=== PATIENT | female | born 1950 | race Caucasian/White ===

== ENCOUNTER 2019-12-25 16:39 | Inpatient (IN) ==
[2019-12-25] MEDS ORDERED: ZOSYN 3.375 GM in NS 50 ML IV ONE (17:29)
[2019-12-25] MEDS ORDERED: DUONEB (A & A) INH ONE (17:29)
[2019-12-25] MEDS ORDERED: TAMIFLU PO ONE (17:29)
[2019-12-25] MEDS ORDERED: NS 1,000 ML IV ONE ×3 (17:29→18:40)
[2019-12-25] MEDS ORDERED: TORADOL IV ONE (17:29)
[2019-12-25] MEDS ORDERED: SOLU-MEDROL IV ONE (17:29)
[2019-12-25 18:12] LABS: BASO# 0.02 X1000 (0.0-0.2); BASO% 0.2 % (0.0-0.8); HEMATOCRIT 41.3 % (37.0-47.0); HEMOGLOBIN 13.7 g/dL (12.0-16.0); IMM GRAN# 0.03 X1000 (0.0-0.04); IMM GRAN% 0.3 % (0.0-0.5); LYMPH# 1.85 X1000 (1.2-3.4); MCH 31.8 PG (27-31); MCHC 33.2 g/dL (33-37); MCV 95.8 FL (81-99); MONO# 1.04 X1000 (0.11-0.59); MPV 9.9 FL (7.4-10.4); NEUT# 8.61 X1000 (1.4-6.5); NEUT% 74.5 % (42.2-75.2); PLT 262 X1000 (130-400); RBC 4.31 XMIL (4.2-5.4); RDW 13.2 % (11.5-14.5); WBC 11.55 X1000 (4.8-10.8)
[2019-12-25 18:17] LABS: AGAP 16; ALBUMIN 4.2 g/dL (3.5-5.0); ALKALINE PHOSPHATASE 93 U/L (32-104); BUN 14 mg/dL (8-22); CALCIUM 9.1 mg/dL (8.8-10.2); CHLORIDE 95 mmol/L (98-107); COSMO 270; CREATININE 0.7 mg/dL (0.5-0.9); ESTIMATED GFR > 60; GLUCOSE 123 mg/dL (70-104); GOT 21 U/L (10-30); GPT 11 U/L (10-36); POTASSIUM 4.2 mmol/L (3.5-5.1); SODIUM 134 mmol/L (136-145); TCO2 24 mmol/L (25-35); TOTAL PROTEIN 6.9 g/dL (6.3-8.3)
--- NOTE | 2019-12-25 18:23 | Diag Imaging Result Doc PS360 ---
EXAM: CHEST-2 VIEWS 12/25/2019 HISTORY: short of breath TECHNIQUE: PA and lateral chest COMMENT: There is increased opacity present in the inferior right upper lobe and the right middle lobe compared to 04/14/2019. There is COPD. The heart size and primary vascularity are within normal limits. IMPRESSION: COPD and patchy bronchopneumonia in the right upper and middle lobes. Electronically signed by Keanu Yeung 12/25/2019 6:20 PM
[2019-12-25 18:27] LABS: INFLUENZA A POSITIVE (NEGATIVE); INFLUENZA B NEGATIVE (NEGATIVE)
--- NOTE | 2019-12-25 18:32 | EKG Report ---
Test Performed on : 12/25/2019 6:29:40 PM Test Reason : SOB Blood Pressure : / mmHG Vent. Rate : 084 BPM Atrial Rate : 084 BPM P-R Int : 188 ms QRS Dur : 102 ms QT Int : 390 ms P-R-T Axes : 078 -03 078 degrees QTc Int : 460 ms Normal sinus rhythm. Anteroseptal infarct (cited on or before 03-MAR-2015) Abnormal ECG When compared with ECG of 12-FEB-2018 22:32, No significant change was found Unconfirmed Result
[2019-12-25] MEDS ORDERED: ZOFRAN ODT PO PRN (18:36)
[2019-12-25] MEDS ORDERED: TYLENOL PO PRN (18:36)
--- NOTE | 2019-12-25 18:42 | PROVIDER DOCUMENTATION ---
This chart was entered by Sulema Carranza Scribe, acting as scribe for Devin Min MD. HPI-General Adult - General Chief Complaint: Flu Symptoms Stated Complaint: BLOOD PRESSURE Time Seen by Provider: 12/25/19 17:26 Source: patient, family Allergies/Adverse Reactions: Patient Allergies Allergy/AdvReac Type Severity Reaction Status Date / Time No Known Allergies Allergy Verified 02/12/18 21:47 Home Medications: Home Medication List Medication Instructions Recorded Confirmed Last Taken Type Atorvastatin Calcium [Lipitor] 10 mg PO DAILY 09/10/14 04/27/15 04/26/15 History Budesonide/Formoterol Fumarate 2 puff INH BID PRN 09/10/14 04/27/15 04/26/15 History [Symbicort 160-4.5 Mcg Inhaler] Metoprolol Succinate E.r. [Toprol 25 mg PO DAILY 09/10/14 04/27/15 04/26/15 History Xl] Nitroglycerin Sl [Nitroglycerin] 0.4 mg SL PRN PRN 04/27/15 04/27/15 04/25/15 07:00 History Amoxicillin [Amoxil] 875 mg PO BID #28 tablet 04/29/15 Unknown Rx Clarithromycin [Biaxin] 500 mg PO BID #28 tablet 04/29/15 Unknown Rx Nicotine Patch [Nicoderm Patch] 7 mg TD DAILY #10 patch.td24 04/29/15 Unknown Rx Nicotine Patch [Nicoderm Patch] 14 mg TD DAILY #10 patch.td24 04/29/15 Unknown Rx Pantoprazole [Protonix] 40 mg PO BID #60 tablet 04/29/15 Unknown Rx Sucralfate [Carafate Liquid] 1 gm PO AC + HS #120 udc 04/29/15 Unknown Rx Amoxicillin/Pot Clavulanate 875 mg PO Q12HR #14 tab 02/12/18 Unknown Rx [Augmentin] - History of Present Illness -Gen Adult Nature of Presenting Problems: 68 yowf presents w/son to er w/cc pt sent from PCP w/+ flu dx and hypotension. htn has resolved in er. pt sts 3 days of sore throat, ear pain, keller, body aches, chills and cough. pt son sts she was sick w/similar symptoms before and was admitted. son also reports pt is noncompliant to taking rx. pt has hx of PNU. smoker. Location of Pain/Injury: reports: generalized Pain Radiation: reports: no radiation Quality of Pain: reports: aching Severity: reports: mild Onset/Duration: reports: 3 days ago Timing: reports: still present Context/Activities at Onset: reports: none Modifying Factors: improves with: nothing Associated Symptoms: reports: cough, EENT symptoms, fever/chills, headaches, muscle aches Recently seen or treated by another doctor?: Yes (tx at pcp water vessel captain, dx w/flu ) Review of Systems - Adult - REVIEW OF SYSTEMS - ADULT Constitutional: reports: see HPI, chills, other (+ flu dx). denies: fever, fatique, night sweats Eyes: reports: no symptoms reported Ears, Nose, Mouth & Throat: reports: see HPI, ear pain, throat pain. denies: ear discharge, nose pain, hoarseness Cardiovascular: reports: see HPI, other (HTN, has resolved in er) Respiratory: reports: see HPI, cough. denies: hemoptysis, pleurisy, shortness of breath Gastrointestinal: reports: no symptoms reported Genitourinary: reports: no symptoms reported Musculoskeletal: reports: see HPI, muscle aches (generalized). denies: joint pain, muscle weakness, neck pain Integumentary: reports: no symptoms reported Neurological: reports: see HPI, headache/migraines. denies: loss of balance, numbness, tremors Psychiatric: reports: no symptoms reported Endocrine: reports: no symptoms reported Hematologic/Lymphatic: reports: no symptoms reported Allergic/Immunologic: reports: no symptoms reported All Other Systems: Reviewed and Negative Past History - Adult - PAST MEDICAL HISTORY-ADULT Review of Records: reports: Nursing Assessment Review, Medications Reviewed, Social history reviewed & non-contributory. Major Childhood Illnesses: reports: denies history Cardiovascular: reports: CHF, HTN, hyperlipidemia, [place] Respiratory: reports: asthma, COPD Gastrointestinal: reports: denies history Obstetrical/Gynecological: reports: denies history Genitourinary: reports: denies history Musculoskeletal: reports: denies history Neurological: reports: denies history Endocrine/Immune: reports: denies history Other Conditions: reports: denies history - PRIOR SURGERIES/PROCEDURES Surgical/Procedure History: reports: cardiac stent, BTL - IMMUNIZATION STATUS Childhood Immunizations: See Nurse Assessment Flu Vaccine: See Nurse Assessment - FAMILY HISTORY Family History: reviewed, not pertinent - SOCIAL HISTORY Smoking: cigarettes, greater than 1 pack/day Provider spent 3-5 mins advising pt. on dangers of tobacco.: Discussed manners to quit use, and f/u contacts for add'l counseling. Substance Use: none/never Physical Exam-General - PHYSICAL EXAM-ADULT Initial Vital Signs Reviewed: Yes - CONSTITUTIONAL General Appearance: alert, mild distress (uncomfortable appearaing), thin. negative: lethargic, slow to respond, combative - EYES Eyes: PERRL/EOMI - HEAD, EARS, NOSE, MOUTH & THROAT HENMT: normocephalic/atraumatic, moist mucous membranes - NECK Neck: non-tender, full range of motion, supple, normal inspection - RESPIRATORY Respiratory: chest non-tender, normal breath sounds, no pleuratic chest pain, no respiratory distress, no accessory muscle use, wheezing (expiratory), other (tachypnic). negative: lungs clear, decreased breath sounds, accessory muscle use, crackles - CARDIOVASCULAR Cardiovascular: normal peripheral pulses, regular rate, rhythm - GASTROINTESTINAL (ABDOMEN) Abdominal Exam: normal bowel sounds, non tender, soft - MUSCULOSKELETAL Back Exam: normal inspection Extremity: normal range of motion, non-tender, normal inspection - SKIN Integumentary: normal color, normal turgor, warm/dry - NEUROLOGIC Neurologic: grossly normal, no motor/sensory deficits - PSYCHIATRIC Psych/Mental Status: normal mood/affect, normal thought content, normal thought process, oriented x 3 Progress - PLAN OF CARE/RESULTS Progress/Plan/Lab Results: Vital Signs - 8 hr 12/25/19 16:54 Temperature 99.0 F Pulse Rate 89 Respiratory Rate 17 Blood Pressure 125/74 O2 Sat by Pulse Oximetry 92 L Orders Category Date Time Status Nursing- Obtain EKG once Care 12/25/19 17:11 Active Saline Loc NOW Care 12/25/19 17:12 Active CHEST-2 VIEWS [RAD] Stat Exams 12/25/19 17:10 Ordered BLOOD CULTURE [BLDCUL] Stat Lab 12/25/19 17:10 Uncollected CBC WITH ELECTRONIC DIFF [HEME] Stat Lab 12/25/19 17:10 Uncollected COMPREHENSIVE METABOLIC PANEL [CHEM] Stat Lab 12/25/19 17:[address] Stat Lab 12/25/19 17:[address] S[address]EN [address] Stat Lab 12/25/19 17:14 Uncollected LACTATE, PLASMA [CHEM] Stat Lab 12/25/19 17:10 Uncollected PRO B-NATRIURETIC PEPTIDE Stat Lab 12/25/19 17:12 Uncollected TROPONIN T HIGH SENSITIVITY Stat Lab 12/25/19 17:12 Uncollected URINALYSIS W/POSS RFLX CULT [URINALYSIS] Stat Lab 12/25/19 17:11 Uncollected EKG [EKG] Stat Ther 12/25/19 17:11 Ordered Result Diagrams: 12/25/19 17:40 12/25/19 17:40 - EKG 1 Time of EKG reading by physician:: 18:29 EKG Read and Signed by:: Devin Min EKG Interpretation (*Must complete 3 of following elements*): Abnormal Rate: 84 Rhythm: NSR [place]: normal QRS: poor R wave progression NH Interval: normal ST Wave: normal Comments: AOWMI - XRAY 1 XRAY Study: Chest Impression: Abnormal, See EMR Report ( EXAM: CHEST-2 VIEWS 12/25/2019 HISTORY: short of breath TECHNIQUE: PA and lateral chest COMMENT: There is increased opacity present in the inferior right upper lobe and the right middle lobe compared to 04/14/2019. There is COPD. The heart size and primary vascularity are within normal limits. IMPRESSION: COPD and patchy bronchopneumonia in the right upper and middle lobes. Electronically signed by Keanu Yeung 12/25/2019 6:20 PM) - CONSULTS/PCP/HOSPITALIST Notification #1 *Consult/PCP/Hospitalist*: Dr. Carrington Time Discussed: 18:34 Consult Disposition: Admit (will see pt later this evening) Departure - Departure Date of Disposition Decision: 12/25/19 Time of Disposition Decision: 18:41 DIAGNOSIS: Influenza A, Decompensated COPD with exacerbation (chronic obstructive pulmonary disease), Tobacco use disorder Right middle lobe pneumonia Qualifiers: Pneumonia type: due to unspecified organism Qualified Code(s): J18.1 - Lobar pneumonia, unspecified organism Disposition: ADMITTED INPATIENT 09 Certified Medical Emergency: Emergent Condition: Fair Referrals and Follow-Ups: Yash Samuels MD [Primary Care Provider] - - Critical Care Note This patient required my direct & personal management of CC.: No Attestation - Physician/ ELENA Attestation Patient care was provided by Advanced Practice Provider:: No The physician spent face to face time with patient:: Yes Advanced Practice Provider documentation review:: Supervising physician onsite and consulted in the evaluation and care of this patient. The physician did have a face to face encounter with the patient. This chart was documented by the indicated scribe, (Sulema Carranza, Alphonso) and accurately reflects the services I performed and decisions made by me, Devin Min MD, as attested by the provider's signature.
[2019-12-25 18:45] LABS: BE -4.7 mmoll (-3.0-3.0); BLOOD TYPE ARTERIAL; HCO3-(ACT) 21.1 mmoll (20.0-26.0); METHB 1.4 % (0.0-1.5); O2(CT) 14.9 mL/dL (15.0-23.0); O2HB 91.9 % (95.0-99.0); PCO2(98.6) 32 mmHg (35-45); PO2(98.6) 68 mmHg (60-100); SAMPLE BLOOD; SAO2 96.9 % (95.0-100.0); THB 11.5 g/dL (11.5-17.4); pH(98.6) 7.39 (7.35-7.45)
[2019-12-25 18:48] LABS: ALLEN TEST NO; MODALITY ROOM AIR
[2019-12-25] MEDS: DUONEB (A & A) INH SCH ×2 (20:32→22:58)
[2019-12-25 21:33] LABS: URINE SOURCE CLEAN CATCH
[2019-12-25 21:40] LABS: BILIRUBIN URINE NEGATIVE (NEGATIVE); BLOOD URINE SMALL (NEGATIVE); COLOR YELLOW; GLUCOSE URINE NEGATIVE (NEGATIVE); KETONE URINE TRACE mg/dL (NEGATIVE); LEUKOCYTES URINE NEGATIVE (NEGATIVE); NITRITE URINE NEGATIVE (NEGATIVE); PROTEIN URINE TRACE mg/dL (NEGATIVE); SP GRAVITY URINE 1.018; TURBIDITY URINE HAZY (CLEAR); UROBILINOGEN URINE NORMAL (NORMAL)
[2019-12-25 21:50] LABS: UR EPITHELIAL CELLS <10 /HPF (<10); URINE BACTERIA 3+ /HPF; URINE CASTS NONE SEEN; URINE CRYSTALS NONE SEEN; URINE RBC <10 /HPF (<10); URINE SMALL ROUND CELLS NONE SEEN; URINE WBC <10 /HPF (<10); URINE YEAST NONE SEEN
[2019-12-25] MEDS: SOLU-MEDROL IV SCH (22:17)
[2019-12-26] MEDS: ZOSYN 3.375 GM in NS 50 ML IV SCH ×4 (01:00→17:51)
[2019-12-26] MEDS: DUONEB (A & A) INH SCH ×5 (03:04→23:15)
[2019-12-26] MEDS: SOLU-MEDROL IV SCH ×3 (05:36→20:43)
[2019-12-26] MEDS ORDERED: NS 1,000 ML IV ONE (08:28)
[2019-12-26] MEDS: TAMIFLU PO SCH ×2 (08:29→20:43)
[2019-12-26] MEDS ORDERED: NITROGLYCERIN SL PRN (08:30)
[2019-12-26] MEDS ORDERED: FLU VACCINE IM ONE (09:00)
[2019-12-26] MEDS: TOPROL XL PO SCH (09:10)
[2019-12-26] MEDS: PLAVIX PO SCH (09:10)
--- NOTE | 2019-12-26 12:46 | HISTORY AND PHYSICAL ---
PRIMARY CARE PROVIDER: Dr. Samuels. CHIEF COMPLAINT: Shortness of breath and low blood pressure. HISTORY OF PRESENT ILLNESS: Ms. Dayna Montoya is a 68-year-old female with a medical history of COPD, tobacco abuse, and coronary disease who presents with complaints of shortness of breath, fever and low blood pressure. Apparently, she went to her primary care provider, Dr. Samuels, who diagnosed her with the flu and hypotension, was sent here. The hypotension resolved while she was in the ER. However, her complaints have been going on for at least 4 days now of sore throat, ear pain, headache, body aches, chills, cough and a subjective fever. She denies coughing up any colors. Denies chest pain. There are no other symptoms. Evaluation reveals that she is positive for influenza A. Denies any urinary tract infection symptoms, however, her urinalysis looks like she may possibly have a UTI as there is bacteria in it. It is most likely just colonization, and then she had a chest x-ray which showed right upper and middle lobe bronchopneumonia. So, we will continue to treat and monitor. PAST MEDICAL HISTORY: 1. Hypertension. 2. Hyperlipidemia. 3. COPD. 4. Congestive heart failure. 5. CAD. 6. History of myocardial infarction. 7. GERD. SURGICAL HISTORY: 1. Bilateral tubal ligation. 2. Old report shows she has had PTCA with coronary stenting, but she states she had a stent placed in her left neck and that she did not have stents in her heart. SOCIAL HISTORY: , lives alone Four children. 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 She smokes 3 packs of cigarettes a day for 45+ years. Denies alcohol or illicit drug use. FAMILY HISTORY: Both mother and father from heart disease. Three brothers all from seizures. Atherosclerotic disease. ALLERGIES: No known drug allergies. HOME MEDICATIONS: 1. Lipitor 10 mg p.o. nightly. 2. Nitroglycerin 0.4 mg sublingual p.r.n. 3. Plavix 75 mg p.o. daily. 4. Protonix 40 mg p.o. daily. 5. Toprol-XL 25 mg p.o. daily. 6. Albuterol 2 puffs inhaled 4 times a day. REVIEW OF SYSTEMS: Fourteen point review of systems are complete and all are negative except those mentioned above HPI. PHYSICAL EXAMINATION: VITAL SIGNS: Temperature 97.3 degrees, heart rate 68, respiratory rate 20, blood pressure 118/51, O2 saturation 98% on room air. GENERAL: Ms. Dayna Montoya is a 68-year-old female. She is in no acute distress. She is able answer questions appropriately. HEENT: Atraumatic, normocephalic. Pupils equal, round, reactive to light. Extraocular movements intact. Mucous membranes are dry. NECK: Trachea midline. CARDIOVASCULAR: S1, S2. Regular rate and rhythm. No rubs, gallops, or murmurs. No lower extremity edema. +2 dorsalis and radial pulses. Negative JVD or carotid bruits. PULMONARY: Clear to auscultation, bilateral breath sounds. No accessory muscle use or work of breathing noted. Tolerating room air. GI: Soft, nontender, nondistended. Positive bowel sounds x4. EXTREMITIES: Moves all extremities equally with decreased range of motion. NEUROLOGIC: Alert and oriented x3. Follows commands. Sensory is intact. SKIN: Warm, dry, intact. LABORATORY DATA: White blood cells 11,000, hemoglobin 13, hematocrit 41, platelet count 262,000. ABGs on room air, pH 7.39, pCO2 32, PO2 60, bicarb 21, base excess -4.7, saturation 92%. Lactate 1.1 and is on room air. Sodium 134, potassium 4.2, BUN 14, creatinine 0.7 glucose 123, calcium 9.1, bilirubin 0.40, AST 21, ALT 11. Troponin 10. ProBNP 114. Albumin 4.2. Lactate 1.4. Urinalysis trace protein, trace ketones, small blood, 3+ bacteria. Influenza A positive. Group A strep negative. IMAGING: Chest x-ray right upper and middle lobe bronchopneumonia plus COPD. EKG;normal sinus rhythm, rate 84, QTc 460. ASSESSMENT AND PLAN: 1. Influenza A positive. She has been started on Tamiflu. Droplet precaution isolation. 2. Right upper/middle lobe bronchopneumonia. This could be associated with the flu 2, but given the location, we will go ahead and will consult speech therapy for swallow exam. The antibiotic is Zosyn and we will also have albuterol and Atrovent nebulizers. 3. Chronic obstructive pulmonary disease, mild exacerbation, but there is no CO2 retention. No hypoxemia. It is almost stable, but she has been put on albuterol and Atrovent every 4 hours, budesonide twice a day and 60 mg of Solu-Medrol IV every 8 hours. 4. Hypertension. Continue Toprol. 5. History of coronary artery disease with stent. Continue metoprolol, Plavix, and statin. 6. Hyperlipidemia. Continue statin. 7. Gastroesophageal reflux disease. Continue Protonix. 8. Tobacco abuse. Cessation discussed. If needed, we can add a nicotine patch, currently is not needing it. 9. Anorexia with decreased appetite, poor nutrition. Will do a nutritional consult. Could consider adding an appetite stimulant. 10. Deep venous thrombosis prophylaxis SCDs, but she is also on Plavix already. Dictated by EVARISTO Vivas for Miguel Angel Carrington MD cc: EVARISTO Vivas MD
[2019-12-26] MEDS: PULMICORT INH SCH (19:32)
[2019-12-26] MEDS: LIPITOR PO SCH (20:44)
--- NOTE | 2019-12-26 21:00 | HISTORY AND PHYSICAL ---
ADDENDUM: Patient seen and examined by myself. Full note dictated and discussed with nurse practitioner. The patient is a very pleasant 68-year-old female who presented to the hospital with cough, congestion, body aches and chills. Subsequently diagnosed with the flu, hypertension and pneumonia. She has been admitted to the hospital. Antibiotics, Tamiflu, IV fluids, oxygen, breathing treatments for her COPD, and we will follow. cc: Miguel Angel Carrington MD
[2019-12-27] MEDS: ZOSYN 3.375 GM in NS 50 ML IV SCH ×4 (00:14→17:28)
[2019-12-27] MEDS: DUONEB (A & A) INH SCH ×3 (03:05→12:30)
[2019-12-27] MEDS: SOLU-MEDROL IV SCH ×2 (05:59→17:28)
[2019-12-27] MEDS: PROTONIX PO SCH (05:59)
[2019-12-27 06:33] LABS: BASO# 0.05 X1000 (0.0-0.2); BASO% 0.3 % (0.0-0.8); EOS# 0.04 X1000 (0.0-0.7); EOS% 0.2 % (0.0-10.0); HEMATOCRIT 40.2 % (37.0-47.0); HEMOGLOBIN 13.2 g/dL (12.0-16.0); IMM GRAN# 0.11 X1000 (0.0-0.04); IMM GRAN% 0.6 % (0.0-0.5); LYMPH# 1.77 X1000 (1.2-3.4); LYMPH% 9.2 % (20.5-51.1); MCH 31.7 PG (27-31); MCHC 32.8 g/dL (33-37); MCV 96.4 FL (81-99); MONO# 1.16 X1000 (0.11-0.59); MPV 10.7 FL (7.4-10.4); NEUT# 16.19 X1000 (1.4-6.5); NEUT% 83.7 % (42.2-75.2); PLT 286 X1000 (130-400); RBC 4.17 XMIL (4.2-5.4); RDW 13.2 % (11.5-14.5); WBC 19.32 X1000 (4.8-10.8)
[2019-12-27 06:47] LABS: AGAP 14; ALBUMIN 3.4 g/dL (3.5-5.0); ALKALINE PHOSPHATASE 76 U/L (32-104); BUN 14 mg/dL (8-22); CALCIUM 9.1 mg/dL (8.8-10.2); CHLORIDE 109 mmol/L (98-107); COSMO 288; CREATININE 0.5 mg/dL (0.5-0.9); ESTIMATED GFR > 60; GLUCOSE 151 mg/dL (70-104); GOT 19 U/L (10-30); GPT 13 U/L (10-36); POTASSIUM 4.1 mmol/L (3.5-5.1); SODIUM 143 mmol/L (136-145); TCO2 20 mmol/L (25-35); TOTAL PROTEIN 6.7 g/dL (6.3-8.3)
[2019-12-27 07:27] LABS: BANDS 3 % (0-1); LYMPHS 6 % (21-51); MONO 4 % (1-9); POIKILOCYTOSIS 1+; SEGS 86 % (42-75)
[2019-12-27 07:28] LABS: BURR CELLS 1+; STOMATOCYTES OCCASIONAL
[2019-12-27] MEDS: PULMICORT INH SCH ×2 (08:26→22:46)
[2019-12-27] MEDS: TAMIFLU PO SCH ×2 (08:40→20:24)
[2019-12-27] MEDS: TOPROL XL PO SCH (08:40)
[2019-12-27] MEDS: PLAVIX PO SCH (08:40)
[2019-12-27] MEDS ORDERED: SOLU-MEDROL IV SCH ×2 (10:45→14:00)
[2019-12-27] MEDS: XOPENEX NEB INH SCH (16:00)
[2019-12-27] MEDS: LIPITOR PO SCH (20:24)
--- NOTE | 2019-12-27 22:20 | PROGRESS NOTE ---
DATE: 12/27/2019 SUBJECTIVE: Patient notes she does not feel well today. She is having some cough, congestion. PHYSICAL EXAMINATION: Vital Signs: Reviewed. Temp 97 degrees, pulse 58, respiratory rate 18, BP 125/52. General: Patient is awake, alert. She is in mild respiratory distress, lying flatly in bed. HEENT: Normocephalic. Neck: Supple. Cardiovascular: Regular rate. Chest: Decreased breath sounds, positive wheezing. Abdomen: Soft, nondistended. Extremities: Moves all extremities. Neurologic: No changes. ASSESSMENT: 1. Chronic obstructive pulmonary disease with exacerbation. 2. Hypoxic respiratory failure. 3. Influenza type A positive. 4. Right upper and middle lobe bronchopneumonia. PLAN: We will continue antibiotics, Tamiflu, oxygen, breathing treatments. Further orders as needed. cc: Miguel Angel Carrington MD
[2019-12-27] MEDS: XOPENEX NEB ONE (22:42)
[2019-12-28] MEDS: ZOSYN 3.375 GM in NS 50 ML IV SCH ×3 (00:26→12:44)
[2019-12-28] MEDS: XOPENEX NEB INH SCH (03:26)
[2019-12-28] MEDS: SOLU-MEDROL IV SCH (05:43)
[2019-12-28 05:55] LABS: BASO# 0.03 X1000 (0.0-0.2); BASO% 0.2 % (0.0-0.8); HEMATOCRIT 35.7 % (37.0-47.0); HEMOGLOBIN 11.3 g/dL (12.0-16.0); IMM GRAN# 0.11 X1000 (0.0-0.04); IMM GRAN% 0.7 % (0.0-0.5); LYMPH# 1.62 X1000 (1.2-3.4); LYMPH% 9.6 % (20.5-51.1); MCHC 31.7 g/dL (33-37); MCV 97.8 FL (81-99); MONO% 7.1 % (1.7-9.3); MPV 10.2 FL (7.4-10.4); NEUT% 82.4 % (42.2-75.2); PLT 331 X1000 (130-400); RBC 3.65 XMIL (4.2-5.4); RDW 13.3 % (11.5-14.5); WBC 16.86 X1000 (4.8-10.8)
[2019-12-28 06:01] LABS: AGAP 12; ALBUMIN 3.3 g/dL (3.5-5.0); ALKALINE PHOSPHATASE 67 U/L (32-104); BUN 18 mg/dL (8-22); CALCIUM 8.8 mg/dL (8.8-10.2); CHLORIDE 109 mmol/L (98-107); COSMO 292; CREATININE 0.6 mg/dL (0.5-0.9); ESTIMATED GFR > 60; GLUCOSE 151 mg/dL (70-104); GOT 17 U/L (10-30); GPT 13 U/L (10-36); SODIUM 144 mmol/L (136-145); TCO2 24 mmol/L (25-35); TOTAL BILIRUBIN < 0.15 mg/dL (0.20-1.00); TOTAL PROTEIN 6.1 g/dL (6.3-8.3)
[2019-12-28 06:34] LABS: BANDS 1 % (0-1); LYMPHS 11 % (21-51); MONO 2 % (1-9); SEGS 85 % (42-75)
[2019-12-28 06:35] LABS: BURR CELLS OCCASIONAL; POIKILOCYTOSIS OCCASIONAL
[2019-12-28] MEDS: PROTONIX PO SCH (06:39)
[2019-12-28] MEDS: XOPENEX NEB ONE (07:56)
[2019-12-28 08:42] VITALS: BP 131/59
[2019-12-28] MEDS: TAMIFLU PO SCH (09:25)
[2019-12-28] MEDS: PLAVIX PO SCH (09:25)
[2019-12-28] MEDS: TOPROL XL PO SCH (09:25)
[2019-12-28] MEDS ORDERED: XOPENEX NEB INH SCH (10:00)
--- NOTE | 2019-12-28 15:26 | DISCHARGE SUMMARY ---
ADMISSION DATE: 12/25/2019 DISCHARGE DATE: 12/28/2019 ADMISSION DIAGNOSES: 1. Influenza A positive. 2. Right upper and middle lobe bronchopneumonia. 3. Chronic obstructive pulmonary disease with mild exacerbation. 4. Hypertension. 5. History of coronary artery disease and stent. 6. Hyperlipidemia. 7. Gastroesophageal reflux disease. 8. Anorexia. 9. Tobacco abuse. DISCHARGE DIAGNOSES: 1. Chronic obstructive pulmonary disease exacerbation. 2. Hypoxemic respiratory failure. 3. Influenza type A positive. 4. Right upper and middle lobe bronchopneumonia. CONSULTATIONS: None. SURGERIES AND PROCEDURES: None. HOSPITAL COURSE: Ms. Dayna Montoya is a 68-year-old female with a medical history of COPD and tobacco abuse who presented with complaints of shortness of breath, fever, and low blood pressure. She had gone to her primary care provider who diagnosed her with the flu and hypotension. Then she was sent here. The hypotension was resolved by the time she got here but had been complaining of at least 4 days worth of sore throat, ear pain, headache, body aches, chills, cough, and subjective fever. She denies coughing up any colors. Denied chest pain. There essentially were no other symptoms. Evaluation revealed that she did have a positive influenza A. Urinalysis looked like possibly UTI. There was bacteria in it, but she denied any urinary symptoms, and there was no growth in the urine culture. Her chest x-ray showed right upper and middle lobe bronchopneumonia. She was initiated on nebulizers, breathing treatments, steroids, oxygen, and improved over the next couple of days. She did have some anorexia. There was a consult in for Nutrition who saw her on the . Her BMI was 14.9, and they changed her diet to a mechanical soft, added Ensure 3 times a day and snacks as needed. Also checked her swallowing just to make sure it was okay since the pneumonia was on the right upper and middle lobes, and they saw her on the as well. They are the ones who changed her to mechanical soft diet with thin liquids. I think primarily the reason the diet was changed was because she did not have her top dentures. Apparently, they have not been fitting her well. DISCHARGE VITAL SIGNS: Temperature 97.6 degrees, heart rate 62, respiratory rate 18, blood pressure 131/59, O2 saturation 98% on room air. DISCHARGE LAB DATA: White blood cells 16,000, hemoglobin 11, hematocrit 35, platelet count 331,000. Sodium 144, potassium 4.0, BUN 8, creatinine 0.6, glucose 151, calcium 8.8. Bilirubin is less than 0.15, AST 17, ALT 13. Albumin 3.3. Influenza A positive. IMAGING: Chest x-ray on the : COPD and patchy bronchopneumonia in the right upper and middle lobes. EKG: Sinus rhythm, rate 84, QTc 460. DISCHARGE MEDICATIONS: 1. Lipitor 10 mg p.o. nightly. 2. Nitroglycerin sublingual. 3. Plavix 75 mg p.o. daily. 4. Protonix 40 mg p.o. daily. 5. Toprol-XL 25 mg p.o. daily. 6. Albuterol inhaled 2 puffs 4 times a day p.r.n. 7. Medrol Dosepak. 8. Omnicef 300 mg p.o. twice daily for 5 more days. 9. Tamiflu 75 mg p.o. twice daily for 3 more days. PHYSICIAN FOLLOW-UPS: Dr. Yash Samuels. DISCHARGE ACTIVITY: As tolerated. DISCHARGE DIET: Heart healthy, mechanical soft. DISCHARGE INSTRUCTIONS: If your condition changes, contact physician and/or return to the emergency department. Changes may include, but not limited to, shortness of breath, increased fatigue, excessive bleeding, unexplained weight loss or gain, unmanageable pain, signs or symptoms of infection. DISCHARGE DISPOSITION: Home. Dictated by EVARISTO Vivas for Miguel Angel Carrington MD cc: EVARISTO Vivas MD
--- NOTE | 2019-12-28 21:20 | DISCHARGE SUMMARY ---
ADMISSION DATE: 12/25/2019 DISCHARGE DATE: 12/28/2019 ADDENDUM: The patient notes that she is feeling a lot better today. States that her breathing is improved. Denies any fevers or chills. We are going to discharge her home. She was admitted with influenza type A positive as well as right upper middle lobe bronchial pneumonia. We are going to discharge her on steroids, antibiotics, Medrol Dosepak. She will follow up outpatient with treatment facility of choice. cc: Miguel Angel Carrington MD
== END 2019-12-28 13:20 | disposition home or self-care (01) | DRG 193 ==
LOC: P.ED 16:39 → P.MEDSURG 19:52
PROVIDERS: ATTEND Family Medicine